=== PATIENT | female | born 1940 | race Caucasian/White ===

== ENCOUNTER 2025-05-15 11:59 | Emergency (ER) | payer OTHER ==
[~2025-05-15] VITALS: Ht 165.1 cm; Wt 68.8 kg
--- NOTE | 2025-05-15 12:18 | ED.PDOC ---
HPI (NEURO) HPI Comments 84 y/o F, BIBA, with PMHx of asthma, HTN, and HLD presents to the ED for CC of dizziness/weakness. EMS reports, patient is coming from PCP office where she had an appointment for symptoms of dizziness and weakness onset x1week. EMS was then called d/t elevated troponin levels at 20. Patient denies chest pain, shortness of breath, arm numbness, headache, nausea, or vomiting. No other associated symptoms, modifiers, recent injuries or sick contacts present at this time. Time Seen by MD: 12:10 Reviewed Notes: Nurses Notes, Medications, Allergies Information Source: Patient Mode of Arrival: EMS Severity: Moderate Headache Severity: None Timing: Weeks Duration: Since onset Prehospital treatment: None Weakness Location: Generalized Onset: At rest Circumstances: Spontaneous Symptoms: Weakness Before: Normal During: Awake After: Normal Mentation History of: None Modifying factors: Nothing Associated Signs and Symptoms: Weakness Past Medical History PAST MEDICAL HISTORY: Asthma, High Lipids, HTN Surgical History: Denies all surgeries [employer] History: Denies all [employer]IE[employer] Hx Family History Family History: Unknown Social History Smoker: Non-Smoker Alcohol: Denies ETOH Use Drugs: Denies Drug Use Lives In: Home Constitutional: reports: weakness; denies: chills, diaphoresis, fatigue, fever, malaise, sweats, others EENTM: denies: blurred vision, double vision, ear bleeding, ear discharge, ear drainage, ear pain, ear ringing, eye pain, eye redness, hearing loss, mouth pain, mouth swelling, nasal discharge, nose bleeding, nose congestion, nose pain, photophobia, tearing, throat pain, throat swelling, voice changes, others Respiratory: denies: cough, hemoptysis, orthopnea, SOB at rest, shortness of breath, SOB with excertion, stridor, wheezing, others Cardiovascular: denies: chest pain, dizzy spells, diaphoresis, Dyspnea on exertion, edema, irregular heart beat, left arm pain, lightheadedness, palpitations, PND, syncope, others Gastrointestinal: denies: abdomen distended, abdominal pain, blood streaked bowels, constipated, diarrhea, dysphagia, difficulty swallowing, hematemesis, melena, nausea, poor appetite, poor fluid intake, rectal bleeding, rectal pain, vomiting, others Genitourinary: denies: abnormal vagina bleeding, burning, dyspareunia, dysuria, flank pain, frequency, hematuria, incontinence, pain, , vagina discharge, urgency, others Neurological: reports: dizziness; denies: fainting, headache, left sided numbness, left sided weakness, numbness, paresthesia, pre-existing deficit, right sided numbness, right sided weakness, seizure, speech problems, tingling, tremors, weakness, others Musculoskeletal: denies: back pain, gout, joint pain, joint swelling, muscle p ain, muscle stiffness, neck pain, others Integumetry: denies: bruises, change in color, change in hair/nails, dryness, laceration, lesions, lumps, rash, wounds, others Allergic/Immunocompromised: denies: Difficulty Healing, Frequent Infections, Hives, Itching, others Hematologic/Lymphatic: denies: anemia, blood clots, easy bleeding, easy bruising, swollen glands, others Endocrine: denies: excessive hunger, excessive sweating, excessive thirst, excessive urination, flushing, intolerance to cold, intolerance to heat, unexplained weight gain, unexplained weight loss, others Psychiatric: denies: anxiety, bipolar disorder, depression, hopeless, panic disorder, schizophrenia, sleepless, suicidal, others All Other Systems: Reviewed and Negative Physical Exam General Appearance: No Apparent Distress, Normal HEENT: Normal ENT Inspection, Pharynx Normal Neck: Full Range of Motion, Non-Tender, Normal, Normal Inspection Respiratory: Chest Non-Tender, Lungs Clear, No Accessory Muscle Use, No Respiratory Distress, Normal Breath Sounds Cardiovascular: No Edema, No Murmur, No Gallop, Normal Peripheral Pulses, Regular Rate/Rhythm Breast Exam: Deferred Gastrointestinal: No Organomegaly, Non Tender, No Pulsatile Mass, Normal Bowel Sounds, Soft Genitalia: Deferred Pelvic: Deferred Rectal: Deferred Extremities: No calf tenderness, Normal capillary refill, Normal inspection, Normal range of motion, Non-tender, No pedal edema Musculoskeletal : Apperance: Normal Neurologic: Alert, merchandising execution associate II-XII nml as Tested, No Motor Deficits, Normal Affect, Normal Mood, No Sensory Deficits Cerebellar Function: Normal Reflexes: Normal Skin: Dry, Normal Color, Warm Lymphatic: No Adenopathy EKG EKG : Pulse Rate (adult): 77 [place]: Normal Cardiac Rhythm: NSR Block: None Hypertrophy: LVH ST: Normal Was a procedure done? Was a procedure done?: No Differential Diagnosis (SZ) Seizure: N/A General Weakness: Anemia, Dehydration, Electrolyte imbalance, Myocardial infarction Headache: N/A X-Ray, Labs, Meds, VS Vital Signs Date Time Temp Pulse Resp B/P (MAP) Pulse Ox O2 Delivery O2 Flow Rate FiO2 05/15/25 15:32 97.7 74 16 169/83 (111) 96 97.7 05/15/25 13:13 98.7 76 16 156/90 (112) 99 98.7 05/15/25 13:13 76 16 99 Room Air 05/15/25 12:18 77 05/15/25 12:05 97.2 72 18 161/79 (106) 97 97.2 05/15/25 12:05 77 Lab Test 05/15/25 16:05 05/15/25 13:48 05/15/25 12:51 Range/Units Troponin I High Sensitivity Pending 27 22 </=34 ng/L White Blood Count 6.8 4.4-10.8 10^3/uL Red Blood Count 3.94 L 4.0-5.20 10^6/uL Hemoglobin 13.2 12.2-16.2 g/dL Hematocrit 39.6 36.0-46.0 % Mean Corpuscular Volume 100.5 H 80.0-100.0 fL Mean Corpuscular Hemoglobin 33.5 H 28.0-32.0 pg Mean Corpuscular Hemoglobin Concent 33.4 32.0-36.0 g/dL Red Cell Distribution Width 13.9 11.8-14.3 % Platelet Count 214 140-450 10^3/uL Mean Platelet Volume 8.8 6.9-10.8 fL Neutrophils (%) (Auto) 59.8 37.0-80.0 % Lymphocytes (%) (Auto) 30.1 10.0-50.0 % Monocytes (%) (Auto) 7.0 0.0-12.0 % Eosinophils (%) (Auto) 2.9 0.0-7.0 % Basophils (%) (Auto) 0.2 0.0-2.0 % Neutrophils # (Auto) 4.1 1.6-8.6 10 ^3/uL Lymphocytes # (Auto) 2.0 0.4-5.4 10 ^3/uL Monocytes # (Auto) 0.5 0-1.3 10 ^3/uL Eosinophils # (Auto) 0.2 0-0.8 10 ^3/uL Basophils # (Auto) 0 0-0.2 10 ^3/uL Nucleated Red Blood Cells 0.1 % Sodium Level 144 136-145 mmol/L Potassium Level 4.7 3.5-5.1 mmol/L Chloride Level 110 H 98-107 mmol/L Carbon Dioxide Level 25 20-31 mmol/L Anion Gap 9 5-15 Blood Urea Nitrogen 25 H 9-23 mg/dL Creatinine 1.05 H 0.550-1.02 mg/dL Glomerular Filtration Rate Calc 52 >90 mL/min BUN/Creatinine Ratio 23.8 H 10.0-20.0 Serum Glucose 92 74-106 mg/dL Calcium Level 10.2 8.7-10.4 mg/dL [place] [address] Ph: [phone] DIAGNOSTIC IMAGING Diagnostic Imaging Report : [id number] Signed PATIENT: TIA COSTELLO ACCT: [id number] UNIT: [id number] : 1940 LOC: ER ROOM / BED: / AGE / SEX: 84 / F ADM STATUS: REG ER SERVICE [id number] ORDERING PHYSICIAN: UDAY SALAS MD PROCEDURE(s): CXRP - CHEST PORTABLE REASON: weakness ORDER NUMBER(s): [id number], ACCESSION NUMBER(s): [id number] AP portable chest CLINICAL INDICATION: weakness FINDINGS: Heart size is slightly enlarged. The aorta is tortuous. Prominent bronchovascular markings in the lower lung zones right greater than left. IMPRESSION: 1. Mild congestive changes versus bibasilar infiltrates ATED BY: GINNY PRATER MD DICTATED DATE/TIME: 05/15/25 130 SIGNED BY: GINNY PRATER MD SIGNED DATE/TIME: 05/15/25 130 CC: Time of 1ST Reevaluation: 12:40 Reevaluation 1ST: Unchanged Patient Education/Counseling: Diagnosis, Treatment Family Education/Counseling: No Family Present Departure 1 Departure Time of Disposition: 16:24 (Patient's workup is benign. Patient would like to go home. Patient has no complaints at this time. We will discharge patient home with outpatient follow up) Impression: Primary Impression: Abnormal laboratory test Disposition: HOME / SELF CARE / HOMELESS Condition: Stable Additional Instructions: Your workup today was benign. You should follow up with your regular doctor within 1 week. You should stay well rested and well hydrated. If your symptoms worsen or you have any other concerns please return to the emergency room. Discharged With: Self Critical Care Note Critical Care Time?: No Stability Stability form required: No Heart Score Heart Score: Heart Score Response (Comments) Value History Slightly Suspicious 0 EKG Normal 0 Age >65 2 Risk Factors 1 or 2 risk factors 1 Troponin N/A 0 Total 3 I personally scribed for UDAY SALAS MD ([email or web address]) on 05/15/25 at 12:18. Electronically submitted by Daphne Payne ([email or web address]). I personally scribed for UDAY SALAS MD ([email or web address]) on 05/15/25 at 13:38. Electronically submitted by Daphne Payne ([email or web address]). UDAY SALAS MD May 15, 2025 12:18
--- NOTE | 2025-05-15 13:11 | DVH ---
AP portable chest CLINICAL INDICATION: weakness FINDINGS: Heart size is slightly enlarged. The aorta is tortuous. Prominent bronchovascular marking s in the lower lung zones right greater than left. IMPRESSION: 1. Mild congestive changes versus bibasilar infiltrates
[2025-05-15 13:16] LABS: Hematocrit 39.6 % (36.0-46.0); Hemoglobin 13.2 g/dL (12.2-16.2); Mean Corpuscular Hemoglobin 33.5 pg (28.0-32.0); Mean Corpuscular Volume 100.5 fL (80.0-100.0); Nucleated Red Blood Cells % 0.1 %
[2025-05-15 13:25] LABS: Potassium 4.7 mmol/L (3.5-5.1); Sodium 144 mmol/L (136-145)
[2025-05-15 13:26] LABS: Anion Gap 9 (5-15); Carbon Dioxide 25 mmol/L (20-31)
[2025-05-15 13:27] LABS: Calcium 10.2 mg/dL (8.7-10.4)
[2025-05-15 13:28] LABS: Chloride 110 mmol/L (98-107)
[2025-05-15 13:31] LABS: BUN/Creatinine Ratio 23.8 (10.0-20.0); Glucose 92 mg/dL (74-106)
[2025-05-15 13:32] LABS: Blood Urea Nitrogen 25 mg/dL (9-23)
[2025-05-15 16:54] VITALS: BP 142/83; PULSE 75; RESP 16; TEMP 98.7; O2SAT 96
--- NOTE | 2025-05-15 19:11 | ECG ---
[facility] Test Date: 2025-05-15 Test Time: 12:05:56 Pat Name: TIA COSTELLO Department: ED Room: Gender: F Report Checker: gato : 1940 Requested By: UDAY SALAS Order Number: [id number] Reading MD: Jakob Khoury Measurements Intervals [place] Rate: 77 P: 10 PA: 146 QRS: -4 QRSD: 101 T: 145 QT: 414 QTc: 469 Interpretive Statements Sinus rhythm LVH with secondary repolarization abnormality Electronically Signed On 05-17-2025 17:50:09 PDT by Jakob Khoury Please click the below link to view image of tracing.
== END 2025-05-15 16:56 | disposition home or self-care (01) ==
LOC: EDBD 11:59 → ER 11:59
DX: R42 Dizziness and giddiness (principal); R53.1 Weakness; R79.9 Abnormal finding of blood chemistry, unspecified; I10 Essential (primary) hypertension; E78.5 Hyperlipidemia, unspecified; J45.909 Unspecified asthma, uncomplicated
CPT/HCPCS: 36415; 71045; 80048; 84484; 85025; 93005